=== PATIENT | female | born 1960 | race Caucasian/White ===

== ENCOUNTER 2018-05-17 12:33 | Emergency (ER) | payer BC ==
[2018-05-17 12:51] VITALS: BP 119/84
[2018-05-17] MEDS ORDERED: ACETAMINOPHEN 325 MG TABLET PO STA (14:58)
[2018-05-17] MEDS ORDERED: BACITRACIN OINT TOP STA (14:59)
[2018-05-17] MEDS ORDERED: cephALEXin 250 MG CAPSULE PO STA (14:59)
--- NOTE | 2018-05-17 15:02 | XRAY Report ---
Reason: crush injury Procedure Date: 05/17/2018 Accession Number: [id number] / [id number] Procedure: XR - Finger(s) LT CPT Code: FULL RESULT: EXAM: LEFT THIRD DIGIT RADIOGRAPHY EXAM DATE: 05/17/2018 02:45 PM. CLINICAL HISTORY: Crush injury. COMPARISON: None. TECHNIQUE: 3 views. FINDINGS: Bones: Normal. No fracture or bone lesion. Joints: Normal. No subluxations. Soft Tissues: There is an overlying bandage. IMPRESSION: No fracture or subluxation. RADIA
--- NOTE | 2018-05-17 15:02 | ED Physician Documentation ---
History of Present Illness - Stated complaint Stated Complaint: LT MIDDLE FINGER LAC - Chief complaint Chief Complaint: Trauma Ext - Additonal information Additional information: hx from pt L index slammed in car door R handed tdap UTD not immunocompromised Review of Systems Skin: reports: Laceration (s) PD PAST MEDICAL HISTORY - Past Medical History Past Medical History: Yes Cardiovascular: Hypertension - Past Surgical History Past Surgical History: Yes /[employer]: Other - Present Medications Home Medications: Ambulatory Orders Medication Instructions Recorded Confirmed Cephalexin [Keflex] 500 mg PO Q6H #19 capsule 05/17/18 Triamterene/Hydrochlorothiazid 1 each PO 05/17/18 [Triamterene-Hctz 37.5-25 mg Cp] - Allergies Allergies/Adverse Reactions: Allergies Allergy/AdvReac Type Severity Reaction Status Date / Time codeine Allergy Rash Verified 05/17/18 12:52 promethazine Allergy Anaphylaxis Verified 05/17/18 12:54 - Social History Does the pt smoke?: No Smoking Status: Never smoker Does the pt drink ETOH?: Yes Does the pt have substance abuse?: No - Immunizations Immunizations are current?: Yes - POLST Patient has POLST: No PD ED PE NORMAL - Vitals Vital signs reviewed: Yes - Derm Derm: Other (U shaped lac palmar aspect L index, + swelling, no FB, MSV intact) Results - Vitals Vitals: Vital Signs - 24 hr 05/17/18 12:45 Temperature 36.1 C L Heart Rate 79 Respiratory 16 Rate Blood Pressure 119/84 H O2 Saturation 100 Oxygen O2 Source Room air - Rads (name of study) finger Radiology: See rad report (no fx) Procedures - Laceration (location) L finger lac Length in cm: 2 Wound type: Flap Neurovascular status: Sensory intact, Motor intact Anesthesia: Marcaine 0.5% Wound Preparation: Irrigated copiously NS Skin layer closure: Nylon Other: Patient tolerated well, No complications, Neurovascular intact, Tetanus UTD Complexity: Simple PD MEDICAL DECISION MAKING - Sepsis Event Vital Signs: Vital Signs - 24 hr 05/17/18 12:45 Temperature 36.1 C L Heart Rate 79 Respiratory 16 Rate Blood Pressure 119/84 H O2 Saturation 100 Oxygen O2 Source Room air Departure - Departure Disposition: 01 Home, Self Care Clinical Impression: Finger laceration Qualifiers: Encounter type: initial encounter Finger: middle finger Damage to nail status: without damage Foreign body presence: without foreign body Laterality: left Qualified Code(s): S61.213A - Laceration without foreign body of left middle finger without damage to nail, initial encounter Condition: Good Instructions: ED Laceration Hand Prescriptions: Cephalexin [Keflex] 500 mg PO Q6H #19 capsule Comments: Keep the wound clean Apply antibiotic ointment daily Wear the splint as needed to protect the finger Take the antibiotic as directed Motrin and or tylenol as needed for pain - ice and elevation will help too We have tried very hard to prevent infection - but even with good wound care some wounds become infected. Please return for any redness, streaking, drainage, swelling or fever. Else sutures out in 7-10 days
== END 2018-05-17 15:33 | disposition home or self-care (01) ==
LOC: ED 12:33
DX: S61.213A Laceration without foreign body of left middle finger without damage to nail, initial encounter (principal); W23.0XXA Caught, crushed, jammed, or pinched between moving objects, initial encounter; I10 Essential (primary) hypertension
CPT/HCPCS: 12001; 73140; 99283; A9270

== ENCOUNTER 2020-08-16 12:21 | Outpatient (CLI) | payer BC | END 2020-08-16 12:22 | disposition home or self-care (01) | LOC: COV 12:21 | PROVIDERS: ATTEND Family Medicine | DX: R53.83 Other fatigue (principal); M79.10 Myalgia, unspecified site; R19.7 Diarrhea, unspecified; Z20.828 Contact with and (suspected) exposure to other viral communicable diseases ==